=== PATIENT | male | born 1965 | race Caucasian/White ===

== ENCOUNTER 2019-10-06 06:24 | Inpatient (IN) | payer OTHER ==
[2019-10-06] VITALS (8 sets, daily range): BP systolic 111–132; BP diastolic 70–80
[~2019-10-06] VITALS: Ht 180.3 cm; Wt 86.2 kg
[2019-10-06] MEDS ORDERED: HEMOSTATIC MATRIX 8 ML 1 EACH PAD MC ONE ×2 (06:25→08:48)
[2019-10-06] MEDS ORDERED: ROCURONIUM BROMIDE 50 MG/5 ML ONE ×2 (08:40→12:06)
[2019-10-06] MEDS ORDERED: MIDAZOLAM HCL 2 MG/2ML VIAL ONE (08:40)
[2019-10-06] MEDS ORDERED: HYDROMORPHONE INJ 2 MG/ML DISP.SYRIN ONE ×2 (08:40→15:39)
[2019-10-06] MEDS ORDERED: THROMBIN (BOVINE) 5,000 UNITS VIAL TP ONE ×2 (08:48→14:33)
[2019-10-06] MEDS ORDERED: CEFAZOLIN 1 GM ONE (08:48)
[2019-10-06] MEDS ORDERED: GELATIN SPONGE,ABSORBABLE 1 EA SPONGE TP ONE ×3 (08:48→14:36)
[2019-10-06] MEDS ORDERED: BUPIVACAINE 0.5 % PF 150 MG/30 ML VIAL ONE (08:48)
[2019-10-06] MEDS ORDERED: PROPOFOL 100 ML ONE ×3 (09:00→12:04)
[2019-10-06] MEDS ORDERED: BUPIVACAINE MPF 0.5% W/EPI INJ 30 ML VIAL ONE (10:20)
[2019-10-06] MEDS ORDERED: HEPARIN SODIUM, PORCINE 5000 UNITS/1 ML VIAL ONE (10:21)
[2019-10-06 15:33] LABS: BASOPHILS % (AUTO) 0.2 % (0.0-2.0); EOSINOPHILS % (AUTO) 0.1 % (0.0-6.0); HEMATOCRIT 37 % (39-51); HEMOGLOBIN 12.4 g/dL (13.5-17.5); LYMPHOCYTES # (AUTO) 1.4 /CMM (0.8-4.8); LYMPHOCYTES % (AUTO) 7.2 % (20.0-44.0); MEAN CORPUSCULAR HGB CONC 34 g/dl (31.0-36.0); MEAN CORPUSCULAR VOLUME 93 fL (80-96); MONOCYTES # (AUTO) 0.3 /CMM (0.1-1.30); MONOCYTES % (AUTO) 1.4 % (2.0-12.0); NEUTROPHILS # (AUTO) 17.3 /CMM (1.8-8.9); NEUTROPHILS % (AUTO) 91.1 % (43.0-81.0); PLATELET COUNT (AUTO) 188 /CMM (150-450); RED BLOOD CELL COUNT(AUTO) 3.96 MIL/uL (4.5-6.0)
[2019-10-06] MEDS ORDERED: ZOFRAN 4mg/2ML IV PRN (16:00)
[2019-10-06] MEDS ORDERED: DULCOLAX 10 MG/SUPP.RECT RC PRN (16:00)
[2019-10-06] MEDS ORDERED: COLACE 250 MG CAPSULE PO PRN (16:00)
[2019-10-06] MEDS ORDERED: TYLENOL 650 MG TABLET PO PRN (16:00)
[2019-10-06] MEDS: IV NS 0.9% 1,000 ML IV PRN (16:26)
[2019-10-06] MEDS: HYDROMORPHONE 1 MG/1 ML DISP.SYRIN IV PRN ×2 (17:23→21:34)
[2019-10-06] MEDS ORDERED: DEXTROSE 50%-WATER 50 ML DISP.SYRIN IV PRN (18:30)
[2019-10-06] MEDS: CEFAZOLIN 2 GM in IV D5W 100 ML IV SCH (21:53)
[2019-10-06] MEDS: INSULIN REGULAR, HUMAN 100 UNIT/ML 3 ML VIAL SQ PRN (21:54)
[2019-10-06] MEDS: BLOOD SUGAR DIAGNOSTIC 1 EACH STRIP IN SCH (21:55)
[2019-10-07] VITALS (19 sets, daily range): BP systolic 111–144; BP diastolic 62–90
[2019-10-07] MEDS: HYDROMORPHONE 1 MG/1 ML DISP.SYRIN IV PRN ×5 (00:17→10:57)
[2019-10-07 05:26] LABS: BASOPHILS % (AUTO) 0.2 % (0.0-2.0); HEMATOCRIT 35 % (39-51); HEMOGLOBIN 11.9 g/dL (13.5-17.5); LYMPHOCYTES % (AUTO) 6.3 % (20.0-44.0); MEAN CORPUSCULAR HGB CONC 34 g/dl (31.0-36.0); MEAN CORPUSCULAR VOLUME 93 fL (80-96); MONOCYTES # (AUTO) 1.3 /CMM (0.1-1.30); MONOCYTES % (AUTO) 7.9 % (2.0-12.0); NEUTROPHILS % (AUTO) 85.6 % (43.0-81.0); PLATELET COUNT (AUTO) 182 /CMM (150-450); RED BLOOD CELL COUNT(AUTO) 3.79 MIL/uL (4.5-6.0); WHITE BLOOD COUNT (AUTO) 16.4 K/uL (4.3-11.0)
[2019-10-07] MEDS: CEFAZOLIN 2 GM in IV D5W 100 ML IV SCH ×3 (05:45→21:55)
[2019-10-07] MEDS: BLOOD SUGAR DIAGNOSTIC 1 EACH STRIP IN SCH ×4 (07:51→22:39)
[2019-10-07] MEDS: PANTOPRAZOLE 40 MG VIAL IV SCH (08:55)
[2019-10-07] MEDS ORDERED: ATOR20TA PO (09:36)
[2019-10-07] MEDS ORDERED: METF-440 PO (09:36)
[2019-10-07] MEDS ORDERED: ALLO300T2 PO (09:36)
[2019-10-07] MEDS ORDERED: SITA100T PO (09:36)
[2019-10-07] MEDS ORDERED: LOSA100T31 PO (09:36)
[2019-10-07] MEDS ORDERED: HYDR50TA3 PO (09:36)
[2019-10-07] MEDS: IV NS 0.9% 1,000 ML IV PRN (10:57)
[2019-10-07] MEDS ORDERED: oxyCODONE/APAP (5/325 MG) 1 UDTAB TABLET PO PRN ×2 (11:00)
[2019-10-07] MEDS ORDERED: LORAZEPAM INJ 2 MG/ML VIAL IV PRN (11:00)
[2019-10-07] MEDS: GABAPENTIN 300 MG CAPSULE PO SCH ×3 (11:33→17:26)
[2019-10-07] MEDS ORDERED: HYDROMORPHONE MDV 30 MG in IV NS 0.9% 15 ML, PCA TOTAL VOLUME 1 BAG IV PRN ×3 (12:00)
[2019-10-07] MEDS: METHOCARBAMOL (500MG) 500 MG TABLET PO SCH ×2 (12:04→18:00)
[2019-10-07] MEDS: INSULIN REGULAR, HUMAN 100 UNIT/ML 3 ML VIAL SQ PRN ×2 (17:31→22:38)
[2019-10-08] MEDS: METHOCARBAMOL (500MG) 500 MG TABLET PO SCH ×5 (00:28→23:57)
[2019-10-08] MEDS: IV NS 0.9% 1,000 ML IV PRN ×2 (05:02→22:30)
[2019-10-08] MEDS: CEFAZOLIN 2 GM in IV D5W 100 ML IV SCH ×2 (05:49→13:46)
[2019-10-08] MEDS: INSULIN REGULAR, HUMAN 100 UNIT/ML 3 ML VIAL SQ PRN ×4 (07:18→22:39)
[2019-10-08] MEDS: BLOOD SUGAR DIAGNOSTIC 1 EACH STRIP IN SCH ×4 (07:19→22:30)
[2019-10-08 08:00] VITALS: BP 140/81
[2019-10-08] MEDS: GABAPENTIN 300 MG CAPSULE PO SCH ×3 (08:32→16:23)
[2019-10-08] MEDS: PANTOPRAZOLE 40 MG VIAL IV SCH (08:40)
[2019-10-08] MEDS ORDERED: oxyCODONE/APAP (5/325 MG) 1 UDTAB TABLET PO PRN ×2 (12:00)
[2019-10-08] MEDS ORDERED: HYDROMORPHONE MDV 30 MG in IV NS 0.9% 15 ML, PCA TOTAL VOLUME 1 BAG IV PRN ×3 (14:00)
[2019-10-08 16:00] VITALS: BP 146/77
[2019-10-08 20:00] VITALS: BP 156/84
[2019-10-08 21:07] VITALS: BP 156/84
[2019-10-09] MEDS: METHOCARBAMOL (500MG) 500 MG TABLET PO SCH (06:12)
[2019-10-09] MEDS: BLOOD SUGAR DIAGNOSTIC 1 EACH STRIP IN SCH (06:18)
[2019-10-09] MEDS: INSULIN REGULAR, HUMAN 100 UNIT/ML 3 ML VIAL SQ PRN (06:21)
[2019-10-09 08:00] VITALS: BP 145/84
[2019-10-09] MEDS: PANTOPRAZOLE 40 MG VIAL IV SCH (08:29)
[2019-10-09] MEDS: GABAPENTIN 300 MG CAPSULE PO SCH (08:29)
[2019-10-09] MEDS ORDERED: HYDROCODONE/APAP 10/325MG 1 EA TABLET PO PRN (10:00)
[2019-10-09] MEDS ORDERED: HYDROCODONE/APAP 5/325MG 1 EACH TABLET PO PRN (10:00)
== END 2019-10-09 11:55 | disposition home health service (06) | DRG 520 ==
LOC: DS 06:24 → ICU 15:51 → MEDSG2 10-07 14:12
DX: M47.26 Other spondylosis with radiculopathy, lumbar region (principal); I10 Essential (primary) hypertension; E11.9 Type 2 diabetes mellitus without complications; G89.29 Other chronic pain; E78.5 Hyperlipidemia, unspecified
CPT/HCPCS: 36415; 72100-TC; 82962-TC; 85025-TC; 86850-TC; 86921-TC; 87081-TC; 88300-TC; 88304-TC; 88311-TC; 97116-TC; 97530-TC; A4216; C9113; G0378; J0690; J1100; J1170; J1644; J1815; J2250; J2405; J2704; J2710; J3490; J7030; J7050; J7060